=== PATIENT | male | born 1970 | race Caucasian/White ===

== ENCOUNTER 2021-07-04 09:36 | Observation (INO) | payer OTHER ==
[~2021-07-04] VITALS: Ht 170.2 cm; Wt 104.3 kg
--- NOTE | ~2021-07-04 | EKG ---
[place] [address] [facility] [place] [address] ELECTROCARDIOGRAM REPORT Name: SERGE HEREDIA Room #: 214-P [facility] M.R.#: [id number] Admission: 07/04/21 Attend Phys: Curtis Bartlett MD, Discharge: Date of : 66 Report #: [id number] [facility] Test Date: 2021-07-04 Test Time: 19:17:02 Pat Name: SERGE HEREDIA Department: Room: 214 P Gender: M Cable Wirer: FSCHWALBE : 1970 Requested By: Curtis Bartlett Order Number: [id number] MD: Measurements Intervals [place] Rate: 64 P: 54 MI: 169 QRS: 66 QRSD: 97 T: 142 QT: 425 QTc: 439 Interpretive Statements Sinus rhythm Left atrial enlargement Abnormal T, consider ischemia, lateral leads Minimal ST elevation, anterior leads Compared to ECG 07/04/2021 15:48:51 ST (T wave) deviation now present T-wave abnormality still present Possible ischemia still present [email or web address] By: 16 16 Epiphany Epiphany, /EPI
[~2021-07-04 09:36] MED LIST: ALDACTONE25 MG PO; ALPRAZOLAM2 MG PO; CARAFATE 1 GM TA1 G1 PO; CELEXA20 MG PO; KLOR-CON SPRIN10 MEQ PO; NIFEDIPINE ER90 M1 PO; OXYCODONE HCL30 MG PO; OXYCONTIN20 M1 PO; TRAZODONE HCL100 MG PO
[2021-07-04 15:31] VITALS: BP 161/92
[2021-07-04] MEDS ORDERED: ASA81BEC PO (15:39)
[2021-07-04 15:43] LABS: HEMATOCRIT 47.7 % (42.0-52.0); HEMOGLOBIN 16.2 gm/dL (14.0-18.0); MCH 28.6 pg (26.0-34.0); MCV 84.1 fL (80.0-100.0); RBC 5.67 mil/uL (4.50-6.00); WBC 14.9 thou/uL (4.0-11.0)
[2021-07-04] MEDS ORDERED: DESYREL150 MG PO (15:44)
[2021-07-04] MEDS ORDERED: DULOXETINE HCL30 MG PO (15:46)
[2021-07-04] MEDS ORDERED: OXYCODONE HCL20 M1 PO (15:47)
[2021-07-04] MEDS ORDERED: LABETALOL HCL300 MG PO (15:48)
[2021-07-04] MEDS ORDERED: POTASSIUM20 PO (15:49)
[2021-07-04] MEDS ORDERED: OMEPRAZOLE40 MG PO (15:51)
[2021-07-04 15:52] LABS: CALCIUM 9.6 mg/dL (8.5-10.1); CREATININE 1.1 mg/dL (0.7-1.3); POTASSIUM 4.2 mmol/L (3.5-5.1)
[2021-07-04] MEDS ORDERED: HYDROXYZINE HCL25 M2 PO (15:53)
[2021-07-04 19:33] LABS: HEMATOCRIT 45.3 % (42.0-52.0); MCHC 33.2 g/dL (28.0-37.0); MCV 84.4 fL (80.0-100.0); RBC 5.37 mil/uL (4.50-6.00); RDW 14.6 % (10.5-14.5); WBC 11.7 thou/uL (4.0-11.0)
--- NOTE | 2021-07-04 19:49 | NUR ---
PT ARRIVED TO UNIT APPROX 1800 FROM TRUCK DRIVER INSTRUCTOR BY TRUCK DRIVER INSTRUCTOR STAFF. GROIN CHECKED, CDI NO HEMATOMA. GROIN CONT TO BE CDI WITHOUT HEMATOMA. PHYSICIAN CONTACTED FOR MED ORDERS. CONT POC. REPORT GIVEN TO NESTOR ERVIN.
[2021-07-04 19:53] LABS: ANION GAP 16 mmol/L (7-16); BUN 10 mg/dL (7-18); CALCIUM 8.8 mg/dL (8.5-10.1); CHLORIDE 103 mmol/L (98-107); CO2 21 mmol/L (21-32); CREATININE 1.1 mg/dL (0.7-1.3); GLUCOSE 155 mg/dL (74-106); POTASSIUM 3.3 mmol/L (3.5-5.1); SODIUM 140 mmol/L (136-145); TROPONIN-I <0.06 ng/mL (<0.06)
[2021-07-04 20:14] VITALS: BP 133/96
[2021-07-04 23:21] VITALS: BP 144/67
[2021-07-05 03:06] LABS: HEMATOCRIT 44.6 % (42.0-52.0); HEMOGLOBIN 15.4 gm/dL (14.0-18.0); MCH 28.9 pg (26.0-34.0); MCHC 34.4 g/dL (28.0-37.0); MCV 84.1 fL (80.0-100.0); RBC 5.3 mil/uL (4.50-6.00); RDW 14.5 % (10.5-14.5); WBC 11.6 thou/uL (4.0-11.0)
[2021-07-05 04:55] VITALS: BP 159/78
--- NOTE | 2021-07-05 07:30 | EKG ---
[place] [address] [facility] [place] [address] ELECTROCARDIOGRAM REPORT Name: SERGE HEREDIA Room #: 214-P [facility] M.R.#: [id number] Admission: 07/04/21 Attend Phys: Curtis Bartlett MD, Discharge: Date of : 66 Report #: [id number] [facility] Test Date: 2021-07-04 Test Time: 15:48:51 Pat Name: SERGE HEREDIA Department: Room: 214 Gender: M Control Room Agent: FSCHWALBE : 1970 Requested By: Curtis Bartlett Order Number: [id number] MD: Michael Gordon Measurements Intervals [place] Rate: 66 P: 44 HI: 161 QRS: 66 QRSD: 95 T: 129 QT: 410 QTc: 430 Interpretive Statements Sinus rhythm Probable left atrial enlargement Abnormal T, consider ischemia, lateral leads Compared to ECG 10/18/2016 07:23:38 T-wave abnormality now present Possible ischemia now present Electronically Signed On 07-05-2021 7:30:18 CDT by Michael Gordon [email or web address] <ELECTRONICALLY SIGNED> By: iMchael Gordon MD, [facility] 07/05/2130 1548 1548 Michael Gordon MD, [facility] /EPI
--- NOTE | 2021-07-05 07:31 | EKG ---
[place] [address] [facility] [place] [address] ELECTROCARDIOGRAM REPORT Name: SERGE HEREDIA Room #: 214-P [facility] M.R.#: [id number] Admission: 07/04/21 Attend Phys: Curtis Bartlett MD, Discharge: Date of : 66 Report #: [id number] [facility] Test Date: 2021-07-04 Test Time: 19:17:02 Pat Name: SERGE HEREDIA Department: Room: 214 P Gender: M Cloth Desizing Range Tender: FSCHWALBE : 1970 Requested By: Curtis Bartlett Order Number: [id number] MD: Michael Gordon Measurements Intervals [place] Rate: 64 P: 54 DE: 169 QRS: 66 QRSD: 97 T: 142 QT: 425 QTc: 439 Interpretive Statements Sinus rhythm Left atrial enlargement Abnormal T, consider ischemia, lateral leads Minimal ST elevation, anterior leads Compared to ECG 07/04/2021 15:48:51 ST (T wave) deviation now present T-wave abnormality still present Possible ischemia still present Electronically Signed On 07-05-2021 7:30:50 CDT by Michael Gordon [email or web address] <ELECTRONICALLY SIGNED> By: Michael Gordon MD, FAC 07/05/21 0730 16 16 Michael Gordon MD, [facility] /EPI
[2021-07-05 07:46] LABS: ALBUMIN 3.7 g/dL (3.4-5.0); POTASSIUM 4.1 mmol/L (3.5-5.1); TOTAL BILIRUBIN 0.5 mg/dL (0.2-1.0); TOTAL PROTEIN 5.8 g/dL (6.4-8.2); TROPONIN-I 0.47 ng/mL (<0.06)
[2021-07-05] MEDS ORDERED: METOPROLOL SUCC25 M1 PO (08:00)
[2021-07-05] MEDS ORDERED: EFFIENT10 MG PO (08:00)
[2021-07-05] MEDS ORDERED: BENICAR40 MG PO (08:00)
[2021-07-05] MEDS ORDERED: LIPITOR40 MG PO (08:00)
--- NOTE | 2021-07-05 08:02 | NUR ---
ASSUME CARE 1900. PT/VITALS STABLE. CHRONIC GENERALIZED PAIN NOTED. GOOD ENDURANCE TO ACTIVITY. WALKS THE WHALLWAYS. ASSESSMENT CHARTED. PROGRESSING WELL WITH POC. NO DISTRESS NOTED THROUGH THE SHIFT. SR ON MONITOR. PLN IS POSSIBLE DISCHARGE TODAY. WILL CONTINUE TO MONITOR AND FOLLOW WITH POC
[2021-07-05 08:05] VITALS: BP 151/44
[2021-07-05 10:27] VITALS: BP 151/44
--- NOTE | 2021-07-05 10:30 | 2DMMODE ---
[facility] [address] [place] [address] 2 D/M-MODE ECHOCARDIOGRAM Name: SERGE HEREDIA Room #: 214-P [facility] M.R.#: [id number] Admission: 07/04/21 Attend Phys: Curtis Bartlett MD, Discharge: Date of : 66 Report #: [id number] THIS REPORT FOR: cc: SHADY - Megan family physician/PCP SHADY - No family physician/PCP Michael Gordon MD [facility] ~ APPROVED REPORT Study performed: 07/05/2021 09:16:22 EXAM: Comprehensive 2D, Doppler, and color-flow Echocardiogram Patient Location: Bedside Room #: 214 Status: routine BSA: 2.15 HR: 68 bpm BP: 159/78 mmHg Rhythm: NSR Other Information Study Quality: Good Indications Status post PCI, HTN 2D Dimensions RVDd: 31.37 mm IVSd: 13.30 (7-11mm) LVOT Diam: 23.31 (18-24mm) LVDd: 49.90 mm PWd: 12.71 (7-11mm) Ascending Ao: 40.97 (22-36mm) LVDs: 30.77 (25-40mm) Left Atrium: 37.59 (27-40mm) Aortic Root: 43.19 mm Volumes Left Atrial Volume (Systole) Single Plane 4CH: 28.82 mL Single Plane 2CH: 49.43 mL LA ESV Index: 19.00 mL/m2 Aortic Valve AoV Peak Gato.: 1.84 m/s AO Peak Gr.: 13.48 mmHg LVOT Max P.22 mmHg LVOT Max V: 1.34 m/s JAMSHID Vmax: 3.12 cm2 [facility] [address] [place] [address] 2 D/M-MODE ECHOCARDIOGRAM Name: SERGE HEREDIA Room #: 214-P [facility] M.R.#: [id number] Admission: 07/04/21 Attend Phys: Curtis Bartlett, Discharge: Date of : 66 Report #: [id number] Mitral Valve E/A Ratio: 0.7 MV Decel. Time: 267.18 ms MV E Max Gato.: 0.53 m/s MV A Gato.: 0.79 m/s MV PHT: 77.48 ms IVRT: 64.59 ms Pulmonary Valve PV Peak Gato.: 1.13 m/s PV Peak Gr.: 5.09 mmHg Tricuspid Valve TR Peak Gato.: 1.72 m/s RAP Estimate: 5.00 mmHg TR Peak Gr.: 12.00 mmHg PA Pressure: 17.00 mmHg Left Ventricle The left ventricle is normal size. There is normal LV segmental wall motion. Mild concentric left ventricular hypertrophy. Left ventricular systolic function is normal. LVEF is 65%. Mild diastolic dysfunction is present (impaired relaxation pattern). Right Ventricle The right ventricle is normal size. The right ventricular systolic function is normal. Atria The left atrium size is normal. The right atrium size is normal. Aortic Valve The aortic valve is normal in structure. No aortic regurgitation is present. There is no aortic valvular stenosis. Mitral Valve The mitral valve is normal in structure. Mild to moderate mitral regurgitation. Tricuspid Valve The tricuspid valve is normal in structure. Trace tricuspid regurgitation. Estimated PAP is 17mmHg. Pulmonic Valve The pulmonary valve is normal in structure. Mild pulmonic regurgitation. [facility] [place] [address] 2 D/M-MODE ECHOCARDIOGRAM Name: SERGE HEREDIA Room #: 214-P [facility] M.R.#: [id number] Admission: 07/04/21 Attend Phys: Curtis Bartlett, Discharge: Date of : 66 Report #: [id number] Great Vessels The sinuses are dilated at 4.3cm. Ascending aorta is dilated at 4.1cm. IVC is normal in size and collapses >50% with inspiration. Pericardium There is no pericardial effusion. <Conclusion> Normal left ventricular size with mild concentric hypertrophy Ejection fraction 60-65% Grade 1 diastolic dysfunction Normal right ventricular size/function Normal atrial size Color-flow Doppler study was performed of the aortic/mitral/tricuspid/pulmonary valve Normal aortic valve structure and function Mild to moderate mitral valve insufficiency/posteriorly directed Trace tricuspid valve insufficiency Pulmonary systolic pressure estimated 17 mmHg No pericardial effusion Dilated sinus at 4.3 cm Mildly dilated ascending aorta 4.1 cm <ELECTRONICALLY SIGNED> By: Michael Gordon MD, [facility] 07/05/21 1030 1030 1030 Michael Gordon MD, FAC /INF
--- NOTE | 2021-07-05 16:28 | NUR ---
PATIENT STABLE THIS AM POST CATH AND STENT PLACEMENT 07/04. SEEN BY DR. CASTANO AND CARDIAC REHAB. ECHO DONE. PATIENT AWARE OF NEW MEDICATIONS AND MEDICAITON REGIME. AWARE OF FOLLOW UP APPOINTMENT AND EDUCATION ON DISCHARGE RESTRICTIONS. RIGHT GROIN SITE DRESSING, CDI. AREA SOFT. IV DISCONTINUED. TELEMONITOR OFF. PATIENT LEFT FACILITY WITH SPOUSE PRESENT. DENIED ANY QUESTIONS OR CONCERNS AT TIME OF DISCHARGE.
--- NOTE | 2021-07-06 14:38 | CATHLAB ---
[facility] [place] [address] INVASIVE PROCEDURE REPORT Name: SERGE HEREDIA Room #: 214-P [facility] Juan David M.RDemetrius#: [id number] Admission: 07/04/21 Attend Phys: Curtis Bartlett MD, Discharge: 07/05/21 Date of : 66 Report #: [id number] THIS REPORT FOR: cc: FAM - No family physician/PCP FAM - No family physician/PCP Curtis Bartlett MD [facility] ~ APPROVED REPORT Study performed: 07/04/2021 15:57:32 Patient Details Patient Status: Out-Patient Room #: The patient is a 50 year-old male Event Personnel Curtis Bartlett Objects Conservator, Deann Jay RTR Monitor, Tray London RTR Scrub, Lynette Ashton RN research/program director Performed Art Access - R femoral artery* Left Heart Cath w/or w/o Coronaries [id number] [facility] ST[facility]AN Place w/wo Plasty Single LAD 608917 Aortogram Abdominal Peripheral Angio 803183 Hemostasis w/ Mynx 76188 Initial Mod Sed Same Phys/QHP Gr5y [id number] 46380 Mod Sed Same Phys/QHP Ea 510655 Procedure Narrative The Right Groin^ was infiltrated with 1% Lidocaine subcutaneous anesthesia. A PINNACLE 6FR Sheath #[id number] sheath was inserted into the RFA^. Coronary angiography was performed using coronary diagnostic catheters. The right coronary system was accessed and visualized with a JR4 catheter. The left coronary system was accessed and visualized with a JL4 catheter. The left ventricle was accessed and visualized with a PIGTAIL catheter. Left ventriculogram was performed in 30 degree projection. An aortogram of the abdominal aorta was performed. Closure device was deployed with a Fr MYNXGRIP 6/7F #[id number]. The patient tolerated the procedure well and there were no complications associated with the procedure. There was no hematoma. Intraoperative Conscious Sedation Sedation start time: 16:36 Case end Time: 17:22 Fentanyl 100 mcg Versed [address] [address] INVASIVE PROCEDURE REPORT Name: SERGE HEREDIA Room #: 214-P [facility]..#: [id number] Admission: 07/04/21 Attend Phys: Curtis Bartlett, Discharge: 07/05/21 Date of : 66 Report #: [id number] Fluoro Time: 7.40 minutes Dose: DAP 09710.50 cGycm2 2240 mGy Contrast Type and Amount: Visipaque 200 ml Hemodynamics The aortic pressure is 181/104 mmHg with a mean of 126 mmHg. The left ventricular pressure is 147/7 mmHg with a mean of mmHg. The left ventricular end diastolic pressure is 14 mmHg. PCI Technique Lesion Percutaneous coronary intervention was performed on the proximal left anterior descending artery segment. A LAUNCHER 6FR EBU 3.75 #[id number] Guide Catheter was used to engage the ostium. A Luge Wire .014 x 182CM #[id number] Interventional Guidewire was used to cross the lesion. BALLOON DILATION A Balloon catheter Sprinter OTW 2.5 x 15 #[id number] was inserted and inflated up to 12.00atm for 21seconds. Additional Inflation: 12.00atm for 17seconds. STENT DEPLOYMENT A drug-eluting stent RESOLUTE MAYUR OTW 2.75 X 18 #[id number] was inserted and inflated up to 16.00atm for 30seconds. Conclusion #1 Successful PTCA stent of the proximal LAD high-grade long stenosis with placement of a 2.75 x 18 resolute Mayur stent postdilated to 3.0 mm ANABELL grade III flow #2 left main mild disease giving rise to LAD and circumflex #3 there is a ramus intermedius branch was was mildly diseased. The circumflex then extends in the AV groove and there is a 60 to 70% mid distal lesion filling moderate OM branch we will follow #4 dominant right coronary with mild irregularity. #5 normal left jugular size and systolic function EF 55% #6 abdominal aorta is intact with mild ectasia no significant aneurysm. Recommendations and plan: Continue aggressive risk factor modification. Dual antiplatelet therapy has been initiated. Patient transferred to CCU to follow post coronary stent protocol. <ELECTRONICALLY SIGNED> By: Curtis Bartlett MD, [facility] 07/06/21 1438 1438 Curtis Bartlett MD, FACC /INF
== END 2021-07-05 13:00 | disposition home or self-care (01) ==
LOC: CATH 09:36 → SJCVCIMAG 09:36 → 2N 18:28
PROVIDERS: Nurse Practitioner Adult Health; ADMIT Internal Medicine Cardiovascular Disease; ATTEND Internal Medicine Cardiovascular Disease
DX: I25.119 Atherosclerotic heart disease of native coronary artery with unspecified angina pectoris (principal); I10 Essential (primary) hypertension; E78.00 Pure hypercholesterolemia, unspecified; G89.29 Other chronic pain; Z79.82 Long term (current) use of aspirin; Z79.899 Other long term (current) drug therapy; Z91.048 Other nonmedicinal substance allergy status; Z88.8 Allergy status to other drugs, medicaments and biological substances; Z88.5 Allergy status to narcotic agent; Z88.1 Allergy status to other antibiotic agents; Z91.030 Bee allergy status

== ENCOUNTER → 2021-08-08 | Outpatient (CLI) | payer OTHER ==
[~2021-08-08] MED LIST changes: +ASA81BEC PO; +BENICAR40 MG PO; +DESYREL150 MG PO; +DULOXETINE HCL30 MG PO; +EFFIENT10 MG PO; +HYDROXYZINE HCL25 M2 PO; +LABETALOL HCL300 MG PO; +LIPITOR40 MG PO; +METOPROLOL SUCC25 M1 PO; +OMEPRAZOLE40 MG PO; +OXYCODONE HCL20 M1 PO; +POTASSIUM20 PO
== END ==
LOC: SJCVCIMAG 10:01
PROVIDERS: ATTEND Internal Medicine Cardiovascular Disease
DX: I10 Essential (primary) hypertension (principal)